=== PATIENT | male | born 1940 | race Caucasian/White ===

== ENCOUNTER 2021-04-15 15:01 | Emergency (ER) | payer MEDICARE, BC ==
[~2021-04-15] VITALS: Ht 172.7 cm; Wt 78.2 kg
[2021-04-15 15:40] LABS: BASO % 0.8 % (0.0-2.0); EOS # 0.2 K/mm3 (0.0-0.7); EOS % 3.4 % (0-4.0); GRAN # 3.3 K/mm3 (1.4-6.5); HEMATOCRIT 38.9 % (42.0-52.0); HEMOGLOBIN 12.8 g/dl (13.5-18.0); LYMPH # 0.8 K/mm3 (1.2-3.4); LYMPH % 16.5 % (20.0-51.0); MEAN CELL VOLUME 99 fl (80.0-100.0); MEAN CORPUSCULAR HEMOGLOBIN 33 pg (27.0-31.0); MEAN CORPUSCULAR HGB CONC 33 g/dl (33.0-37.0); MEAN PLATELET VOLUME 11.2 fl (7.4-10.4); MONO # 0.6 K/mm3 (0.1-0.6); MONO % 12.9 % (1.7-9.3); PLATELET COUNT 182 K/mm3 (130-400); RED BLOOD COUNT 3.92 M/mm3 (4.20-5.60); REDCELL DISTRIBUTION WIDTH-CV 13.2 % (11.5-14.5)
[2021-04-15 15:48] LABS: INR 1.2 (0.8-3.0); PROTHROMBIN TIME 13.1 SECONDS (9.7-12.8)
[2021-04-15 16:07] LABS: ALBUMIN 3.7 gm/dL (3.4-4.8); BILIRUBIN,TOTAL 0.8 mg/dL (0.2-1.2); CALCIUM 8.7 mg/dL (8.4-10.2); CREATININE, serum 1.27 mg/dL (0.72-1.25); POTASSIUM 3.8 mmol/L (3.5-4.5); TOTAL PROTEIN 6.6 gm/dL (6.2-8.1)
[2021-04-15 16:15] LABS: TROPONIN-I 0.024 ng/mL (0.00-0.033)
[2021-04-15 18:54] VITALS: BP 157/89; PULSE 59; TEMP 97.9
== END 2021-04-15 16:50 | disposition home or self-care (01) ==
LOC: COL.ER 15:01
PROVIDERS: Emergency Medicine
DX: S06.0X1A Concussion with loss of consciousness of 30 minutes or less, initial encounter (principal); S01.01XA Laceration without foreign body of scalp, initial encounter; I10 Essential (primary) hypertension; I48.91 Unspecified atrial fibrillation; Z79.01 Long term (current) use of anticoagulants; Z23 Encounter for immunization; W19.XXXA Unspecified fall, initial encounter; W25.XXXA Contact with sharp glass, initial encounter

== ENCOUNTER → 2022-01-29 | Outpatient (CLI) | payer MEDICARE, BC | LOC: COL.RAD 10:13 | DX: N18.9 Chronic kidney disease, unspecified (principal) ==